=== PATIENT | female | born 1995 | race Caucasian/White ===

== ENCOUNTER 2017-06-19 20:00 | Emergency (ER) | payer BC | END 2017-06-19 21:30 | disposition left against medical advice (07) | LOC: UCCORT 20:00 | DX: R21 Rash and other nonspecific skin eruption (principal); Z53.21 Procedure and treatment not carried out due to patient leaving prior to being seen by health care provider ==

== ENCOUNTER 2019-02-22 09:50 | Emergency (ER) | payer BC ==
[2019-02-22 10:14] VITALS: BP 114/71
--- NOTE | 2019-02-22 10:36 | UC ---
General HPI - HPI Summary HPI Summary: PER TRIAGE, Sore throat and bilat earache since . No fever/chills. States sore throat getting worse since last night. Using chloraseptic spray w/ some relief. pt states hx of frequent strep throat when younger. she states the rapid tests were often negative and cultures would come back positive. - History of Current Complaint Chief Complaint: UCRespiratory Stated Complaint: SORE THROAT,BILAT EAR CONCERN Time Seen by Provider: 02/22/19 10:20 Hx Obtained From: Patient Hx Last Menstrual Period: 02/06/19 Onset/Duration: Gradual Onset Timing: Constant Pain Intensity: 7 - Allergy/Home Medications Allergies/Adverse Reactions: Allergies Allergy/AdvReac Type Severity Reaction Status Date / Time bee Allergy Swelling Uncoded 02/22/19 10:11 Home Medications: Home Medications Levothyroxine TAB* [Synthroid TAB*] 88 - 100 mcg PO DAILY 02/22/19 [History Confirmed 02/22/19] PMH/Surg Hx/FS Hx/Imm Hx Endocrine History: Thyroid Disease - Surgical History Surgical History: None - Family History Known Family History: Positive: Non-Contributory - Social History Alcohol Use: Weekly Substance Use Type: None Smoking Status (MU): Never Smoked Tobacco Review of Systems All Other Systems Reviewed And Are Negative: Yes Constitutional: Negative: Fever, Chills ENT: Positive: Sore Throat, Ear Ache. Negative: Nasal Discharge, Sinus Congestion, Sinus Pain/Tenderness Physical Exam Triage Information Reviewed: Yes Appearance: Well-Appearing Vital Signs: Initial Vital Signs Temp 98.3 F 02/22/19 10:12 Pulse 88 02/22/19 10:12 Resp 16 02/22/19 10:12 BP 114/71 02/22/19 10:12 Pulse Ox 99 02/22/19 10:12 Vital Signs Reviewed: Yes Eyes: Positive: Conjunctiva Clear ENT: Positive: Pharyngeal erythema - mild, TMs normal, Uvula midline, Other - No auricular adenopathy, canals are clear and no mastoid tenderness.. Negative : Nasal congestion, Nasal drainage, Tonsillar swelling, Tonsillar exudate, Trismus, Muffled voice, Hoarse voice Neck: Positive: Supple, Tenderness @ - peritonsilar nodes, Enlarged Nodes @ - peritonsilar(slight) Respiratory: Positive: Lungs clear, No respiratory distress Cardiovascular: Positive: RRR, No Murmur Abdomen Description: Positive: Nontender, No Organomegaly Musculoskeletal: Positive: ROM Intact Neurological: Positive: Alert Psychological: Positive: Age Appropriate Behavior Skin Exam: Normal Skin: Negative: Rashes Diagnostics - Laboratory Lab Results: Rapid strep=negative. TC pending. Course/Dx - Course Course Of Treatment: nurse advised pt crying at time of discharge. on reassessment, pt stating she has had this before and it should just be tx' ed. she said the pain is affecting her voice and she can not swallow. I reassured the pt that I have no concern for a peritonsilar abscess and repeated the tx guidelines for sore throat and that antibiotic not indicated at this time but again a throat culture is pending. I advised the pt that she may continue to tx her pain with the chloroseptic spray and add tylenol and aleve or motrin. pt has clear speech. she has no stridor. she is swallowing her secretions with no difficulty. I will tx here with motrin and viscus lidocaine until she can start medications at home for her discomfort. - Differential Dx - Multi-Symptom Differential Diagnoses: Other - non toxic. rapid strep=negative. tc pending given pt hx and requesting test. no concern for absecess(peritonsilar). antibiotic not indicated. - Diagnoses Provider Diagnosis: Pharyngitis Discharge - Sign-Out/Discharge Documenting (check all that apply): Patient Departure All imaging exams completed and their final reports reviewed: No Studies - Discharge Plan Condition: Stable Disposition: HOME Patient Education Materials: Pharyngitis (ED) Referrals: Trenton Yusuf MD [Primary Care Provider] - Additional Instructions: FOLLOW UP IF NOT BETTER IN 5 DAYS OR SOONER IF WORSE. - Billing Disposition and Condition Condition: STABLE Disposition: Home - Attestation Statements Provider Attestation: I was available for consult. This patient was seen by the FERNANDO. The patient was not presented to , seen by or examined by in -Ursula Tracy MD
[2019-02-22] MEDS ORDERED: Ibuprofen ADULT LIQ* 600 MG/30 ML UDC PO ONE (10:48)
[2019-02-22] MEDS ORDERED: Lidocaine 2% VISCOUS* 15 ML UDC PO ONE (10:48)
== END 2019-02-22 11:03 | disposition home or self-care (01) ==
LOC: UCCORT 09:50
DX: J02.9 Acute pharyngitis, unspecified (principal); E07.9 Disorder of thyroid, unspecified
CPT/HCPCS: 87070; 87651; 99212; A9270-GY; G0463

== ENCOUNTER 2019-08-29 16:47 | Emergency (ER) | payer BC ==
[2019-08-29 17:02] VITALS: BP 132/71
--- NOTE | 2019-08-29 17:18 | UC ---
Ear Complaint HPI - HPI Summary HPI Summary: Left ear fullness/clogged x 1 days. denies any other symptoms. nothing makes it better/worse. - History of Current Complaint Chief Complaint: UCEar Stated Complaint: EAR COMPLAINT Time Seen by Provider: 08/29/19 16:55 Hx Obtained From: Patient Hx Last Menstrual Period: 08/11/19 Pain Intensity: 0 Aggravating Factors: Nothing Alleviating Factors: Nothing - Allergies/Home Medications Allergies/Adverse Reactions: Allergies Allergy/AdvReac Type Severity Reaction Status Date / Time bee Allergy Swelling Uncoded 08/29/19 17:02 PMH/Surg Hx/FS Hx/Imm Hx - Additional Past Medical History Additional PMH: no chronic illness Previously Healthy: Yes - Surgical History Surgical History: None - Family History Known Family History: Positive: Non-Contributory - Social History Alcohol Use: Weekly Substance Use Type: None Smoking Status (MU): Never Smoked Tobacco Review of Systems All Other Systems Reviewed And Are Negative: Yes Constitutional: Negative: Fever, Chills, Fatigue ENT: Positive: Other - ear discomfort Left. Negative: Sinus Congestion, Sinus Pain/Tenderness Respiratory: Negative: Cough Physical Exam Triage Information Reviewed: Yes Appearance: Well-Appearing Vital Signs: Initial Vital Signs Temp 98.1 F 08/29/19 16:58 Pulse 98 08/29/19 16:58 Resp 16 08/29/19 16:58 BP 132/71 08/29/19 16:58 Pulse Ox 97 08/29/19 16:58 Vital Signs Reviewed: Yes Eyes: Positive: Conjunctiva Clear ENT: Positive: Pharynx normal, TMs normal, Uvula midline. Negative: Muffled voice, Sinus tenderness Ear Complaint Course/Dx - Course Course Of Treatment: No findings in a healthy pt. w/ L ear discomfort and feeling clogged. discussed possibility this was the beginning of something and she came in too early or this was middle ear issue but was unable to find source/cause. she will return if worsening - Differential Dx/Diagnosis Differential Diagnosis/HQI/PQRI: Cerumen Impaction, Foreign Body, Other Provider Diagnosis: Ear discomfort Discharge ED - Sign-Out/Discharge Documenting (check all that apply): Patient Departure All imaging exams completed and their final reports reviewed: No Studies - Discharge Plan Condition: Good Disposition: HOME Patient Education Materials: Cerumen Impaction (ED) Referrals: Trenton Yusuf MD [Primary Care Provider] - Additional Instructions: Although you don't have Cerumen Impaction I've included this information if you begin to feel worse. - Billing Disposition and Condition Condition: GOOD Disposition: Home - Attestation Statements Provider Attestation: Per institutional requirements, I have reviewed the chart, however, I was not consulted specifically or made aware of this patient by the midlevel provider. I did not personally evaluate, interact with, or disposition this patient. EK
== END 2019-08-29 17:47 | disposition home or self-care (01) ==
LOC: UCCORT 16:47
DX: H93.8X2 Other specified disorders of left ear (principal); Z91.030 Bee allergy status
CPT/HCPCS: 99211; G0463

== ENCOUNTER 2024-08-27 10:17 | Inpatient (IN) ==
[~2024-08-27 10:17] MED LIST: Lidocaine 1% VIAL 10 MG/ML 30 ML VIAL INJ PRN
[2024-08-27 12:48] LABS: Urine Benzodiazepine Screen None Detected (None Detect); Urine Cannabinoids Screen None Detected (None Detect); Urine Creatinine Concentration 183.23 mg/dL (20.00-320.00); Urine Opiates Screen None Detected (None Detect); Urine TP Creat Ratio 0.14 mg/mg
[2024-08-27 12:54] LABS: Hematocrit 37.5 % (35-45); Mean Corpuscular Hemoglobin 29.7 pg (27-33); Mean Corpuscular Hgb Conc 34.7 g/dL (31-36); Mean Corpuscular Volume 85.6 fL (80-97); Red Blood Count 4.39 10^6/uL (3.63-4.92); Red Cell Distribution Width 14.3 % (12-17); White Blood Count 8.3 10^3/uL (3.8-11.8)
[2024-08-27 13:17] LABS: ABS Eosinophils 0.1 10^3/uL (0.0-0.5); ABS Lymphocytes 1.5 10^3/uL (1.0-4.8); ABS Monocytes 0.8 10^3/uL (0.0-0.9); ABS Neutrophils 5.9 10^3/uL (1.5-7.6); ABS Nucleated RBC 0.01 10^3/ul; Eosinophil % 1.1 %; Lymphocyte % 17.9 %; Mean Platelet Volume 9.4 fL (7.5-11.2); Nucleated Red Blood Cells % 0.1 %/100WBC (0.0-0.8); Platelet Count 265 10^3/uL (150-450)
[2024-08-27] MEDS: miSOPROStol 100 mcg TAB PO ONE ×2 (13:18→22:47)
[2024-08-27 13:22] LABS: ALT 17 U/L (7-52); Albumin 3.7 g/dL (3.5-5.7); Albumin/Globulin Ratio 1.4 (1-3); Alkaline Phosphatase 166 U/L (35-149); Anion Gap 14 mmol/L (2-16); Blood Urea Nitrogen 7 mg/dL (6-24); CO2 Carbon Dioxide 19 mmol/L (22-32); Calcium 9.3 mg/dL (8.6-10.3); Chloride 104 mmol/L (101-111); Globulin 2.7 g/dL (2-4); Glucose 87 mg/dL (70-100); Sodium 137 mmol/L (135-145); Total Bilirubin 0.7 mg/dL (0.2-1.0); Total Protein 6.4 g/dL (6.4-8.9); eGFR CKD-EPI 119.2 (>60)
[2024-08-27] MEDS: Lactated Ringers 1000 ml BAG 1,000 ML IV ONE (17:48)
[2024-08-27] MEDS: Oxytocin in NS 30,000 MILLI.UNIT/500 ML BAG IV SCH (18:09)
[2024-08-27] MEDS: Penicillin G Potassium IV 5,000,000 UNITS in NS 0.9% 100 ml BAG 100 ML IVPB ONE (18:30)
[2024-08-27] MEDS: Penicillin G Potassium IV 3,000,000 UNITS in NS 0.9% 100 ml BAG 100 ML IVPB SCH (22:47)
[2024-08-27] MEDS: Lactated Ringers 1000 ml BAG 1,000 ML IV SCH (22:48)
[2024-08-27] MEDS: OBEPIDURAL (200 ML) 200 ML EPIDURAL ONE (23:30)
[2024-08-27] MEDS ORDERED: Sodium Citrate/Citric Acid LIQ 15 ML UDC PO PRN (23:45)
[2024-08-28] MEDS: Lidocaine 1.5% EPI 1:200,000 30 ML SDV ONE (00:07)
[2024-08-28 00:47] LABS: Urine Appearance Clear; Urine Bilirubin Negative (Negative); Urine Blood Negative (Negative); Urine Color Colorless; Urine Glucose Negative (Negative); Urine Ketones Negative (Negative); Urine Nitrite Negative (Negative); Urine Protein Negative (Negative); Urine Specific Gravity 1.007 (1.002-1.030); Urine Urobilinogen Negative (Negative)
[2024-08-28] MEDS ORDERED: Witch Hazel PAD JAR TOPICAL PRN (04:39)
[2024-08-28] MEDS ORDERED: Dibucaine 1% OINT 28.35 GM TUBE PR PRN (04:39)
[2024-08-28] MEDS ORDERED: Lactated Ringers 1000 ml BAG 1,000 ML IV SCH (05:00)
[2024-08-28] MEDS: Oxytocin in NS 30,000 MILLI.UNIT/500 ML BAG IV SCH (06:00)
[2024-08-28] MEDS: Labetalol IV 5 MG/ML 20 ml VIAL IV PUSH ONE (15:33)
[2024-08-28] MEDS: Calcium Carb (TUMS) 500 mg CHEW TAB PO PRN (20:39)
[2024-08-29 06:33] LABS: ABS Basophils 0.1 10^3/uL (0.0-0.1); ABS Eosinophils 0.2 10^3/uL (0.0-0.5); ABS Lymphocytes 2.1 10^3/uL (1.0-4.8); ABS Monocytes 0.8 10^3/uL (0.0-0.9); ABS Neutrophils 6.1 10^3/uL (1.5-7.6); Eosinophil % 2.1 %; Hematocrit 32.9 % (35-45); Hemoglobin 11.4 g/dL (11.5-14.3); Lymphocyte % 22.4 %; Mean Corpuscular Hemoglobin 30.3 pg (27-33); Mean Corpuscular Hgb Conc 34.8 g/dL (31-36); Mean Corpuscular Volume 87.1 fL (80-97); Platelet Count 205 10^3/uL (150-450); Red Blood Count 3.77 10^6/uL (3.63-4.92); Red Cell Distribution Width 14.6 % (12-17); White Blood Count 9.3 10^3/uL (3.8-11.8)
[2024-08-29 14:50] LABS: Urine TP Concentration < 5 mg/dL; Urine TP Creat Ratio 0.15 mg/mg
[2024-08-29 15:22] LABS: Albumin 3.3 g/dL (3.5-5.7); Albumin/Globulin Ratio 1.4 (1-3); Calcium 9.1 mg/dL (8.6-10.3); Creatinine, Serum 0.84 mg/dL (0.51-0.95); Globulin 2.3 g/dL (2-4); Potassium 4.6 mmol/L (3.5-5.0); Total Bilirubin 0.3 mg/dL (0.2-1.0); Total Protein 5.6 g/dL (6.4-8.9); eGFR CKD-EPI 95.8 (>60)
[2024-08-30] MEDS: Dinoprostone 10 MG VAG.SUPP VAGINAL ONE (05:08)
[2024-08-30] MEDS: Lactated Ringers 1000 ml BAG 1,000 ML IV SCH (05:09)
[2024-08-30] MEDS: Phenylephrine 40 mcg/mL 10mL (400mcg) SYRINGE ONE (05:09)
[2024-08-30] MEDS: Lactated Ringers 1000 ml BAG 1,000 ML IV ONE (05:09)
[2024-08-30] MEDS: OBEPIDURAL (200 ML) 200 ML EPIDURAL SCH (05:10)
[2024-08-30 08:12] VITALS: BP 137/91
== END 2024-08-30 11:45 | disposition home or self-care (01) | DRG 560 ==
LOC: MCHOBOUT 10:17 → MCHOB 11:08
PROVIDERS: ADMIT Midwife; ATTEND Midwife